=== PATIENT | female | born 1935 | race Caucasian/White ===

== ENCOUNTER → 2016-09-04 | Outpatient (CLI) | payer OTHER, BC ==
[~2016-09-04] MED LIST: CHOLCAP5 PO; MULT-845 PO; VITACAP26 PO
[2016-09-04 18:20] LABS: URINE APPEARANCE CLEAR (CLEAR); URINE BILIRUBIN NEG (NEG); URINE COLOR YELLOW; URINE NITRITE NEG (NEG); URINE PH 6.5 (4.5-7.5); URINE SPECIFIC GRAVITY 1.001 (1.000-1.030); UROBILINOGEN NEG (NEG)
[2016-09-04 18:21] LABS: MANUAL MICROSCOPIC REQUIRED? NO; REVIEW REQ? NO
== END | disposition home or self-care (01) ==
LOC: C.LABSPEC 17:50
PROVIDERS: ATTEND Obstetrics & Gynecology
DX: R30.0 Dysuria (principal)

== ENCOUNTER → 2018-03-29 | Outpatient (CLI) | payer OTHER, BC ==
--- NOTE | 2018-03-29 15:41 | MAMMOGRAPHY REPORT ---
BILATERAL DIGITAL SCREENING MAMMOGRAM TOMOSYNTHESIS WITH CAD: 03/29/2018 CLINICAL HISTORY: Routine screening. Patient has no complaints. TECHNIQUE: The study was acquired using full field digital technology and interpreted from soft copy. Breast tomosynthesis in addition to standard 2D mammography was performed. Current study was also ev aluated with a Computer Aided Detection (CAD) system. COMPARISON: Comparison is made to exams dated: 08/04/2016 mammogram, 08/03/2015 mammogram, 03/18/2014 m ammogram, 03/17/2013 mammogram, 03/12/2012 mammogram, and 03/08/2012 mammogram - [facility] nter. BREAST COMPOSITION: The tissue of both breasts is heterogeneously dense, which may obscure small mass es. FINDINGS: No suspicious masses, calcifications, or areas of architectural distortion are noted in either breast . There has been no significant interval change compared to prior exams. Grouped calcifications in t he right 9:00 breast are stable compared to multiple prior exams. IMPRESSION: ACR BI-RADS CATEGORY 2: BENIGN There is no mammographic evidence of malignancy. A 1 year screening mammogram is recommended.( [id number]) The patient will receive written notification of the results. Some breast cancers are not detected with mammography. A negative mammographic report should not lissy y biopsy if a clinically suggestive mass is present. Kavitha Lay M.D. ah/:03/29/2018 15:30:41 Installer Technician: RT [place](R)(M), [facility] letter sent: Normal 1/2 BI-RADS Code: ACR BI-RADS Category 2: Benign
== END | disposition home or self-care (01) ==
LOC: C.MAMM 14:54
PROVIDERS: ATTEND Obstetrics & Gynecology
DX: Z12.31 Encounter for screening mammogram for malignant neoplasm of breast (principal)

== ENCOUNTER 2021-03-14 14:39 | Inpatient (IN) ==
[2021-03-14] MEDS ORDERED: OPTIRAY 320 125ml IV ONE (14:44)
--- NOTE | 2021-03-14 14:47 | Emergency Department Note ---
Impression & Plan Acute left-sided weakness, Acute hyponatremia, Laceration of scalp ED Provider Note NAME: PRINCESS MONTERO AGE: 85 SEX: F : 1935 ARRIVES VIA: Ambulance INFORMANT: patient, ED PROVIDER(S): Kevin Oseguera MD Chief Complaint: Weakness, fall HPI: Patient does present from home due to concern for weakness and associated fall. The patient did have a fall at 1230 but was apparently ambulatory with no deficits. The patient had a subsequent fall around 1355 at which point the patient by EMS was noted to have some left upper extremity left lower extremity weakness. No known history of any anticoagulant use. No reported LOC. BSG was normal. The patient was satting in the low 90s and was placed on supplemental oxygen. Heart rate was in the 110s. Patient states that she had a ground-level fall. Patient denies any fevers or chills. The patient denies any medical problems and does not take any blood thinning medications. No reported fill history per pharmacy. ROS: See HPI for pertinent positives and negatives. A total of 10 systems were reviewed and otherwise negative. Past medical history: See below Surgical history: See below Social history: See below Physical Exam: GENERAL: Well appearing, well nourished, NAD, non-toxic. EYE EXAM: Normal conjunctiva. PERRL, no anisocoria and EOM's grossly intact w/o pain. Head: 2 cm vertical parietal scalp laceration. Scant bleeding. NECK: Supple, no nuchal rigidity, no adenopathy, non-tender. No signs of meningismus. LUNGS: Clear to auscultation. Normal chest wall mechanics. HEART: NSR, no MRG. ABDOMEN: Abdomen soft, non-tender, normo-active bowel sounds, no masses, no rebound or guarding. BACK: No CVA TTP. SKIN: No rashes and no bruising. UPPER EXTREMITIES: Upper extremities are grossly normal. LOWER EXTREMITIES: Grossly normal, no edema. NEURO EXAM: A&O x3, cranial nerves II-XII grossly intact, normal speech, 4/5 strength left upper extremity 3 out of 5 in the left lower extremity. Denies sensory deficits Differential diagnoses: Infection, dehydration, metabolic abnormality, hypo/hyperglycemia, electrolyte disturbance, anemia, hypoxia, cardiac sources, intracerebral event, toxicologic, neurologic, as well as other pathologies. Course: Patient was seen and evaluated the bedside. Full history physical exam was performed. EKG interpreted by me Sinus tachycardia, rate of 110, normal intervals, normal axis, no obvious ST changes. Imaging Studies: See below Cardiac monitoring: An order was placed for continuous cardiac monitoring. The monitor shows a rate of 95 with sinus rhythm. Procedures: Laceration repair performed by Dr. Oseguera Location: Left parietal area Total length: 2 cm Complexity: Simple Verbal consent was obtained after the risks and benefits were explained, includi ng but not limited to bleeding, scarring, infection, pain, and bone/joint/nerve damage. At this time, the risks of the procedure are less than the risks of NOT performing the procedure. A time out was taken and the correct patient and site identified. The skin was prepped with betadine. Cleaning of the area was performed using gentle soap and water. The skin was re-prepped with betadine and a sterile field set. The wound was explored for foreign bodies and none found. Examination revealed no injury to deep structures such as tendons, bone, or significant blood vessels. Debridement was not performed. The wound edges were approximated using 2 simple puneet. Hemostasis and excellent approximation was achieved. Antibacterial ointment and a sterile dressing applied. Detailed wound care instructions and signs and symptoms of infection reviewed with the patient. No complications and the patient tolerated the procedure well. MDM: Patient did present with concern for left-sided weakness. A code stroke had been initiated in the field and after evaluating the patient I did initiate to stroke consult with [facility] Dr. Alcala. Dr. Alcala evaluated the patient and was recommending TPA to be administered. The patient does not meet for obvious contraindications. The patient did have a ground-level fall but does not use blood thinning medications and is hemiplegic. CT of the head showed arachnoid cysts with no obvious occlusion based on CTAs only some mild to moderate narrowing. The patient did have her laceration repaired without any issue. TPA was given. I did speak the on-call hospitalist and the patient was admitted to the medicine service. Was related that the patient reported that she drinks about 5 beers daily. The patient states that she did not have any beer today. Patient is awake alert and does follow commands. Verbal consent was obtained by Dr. Alcala after discussing the risks and benefits with the patient with regards to TPA administration. Patient does have hyponatremia likely consistent with the patient's chronic alcohol use. The patient was also ordered IV thiamine as well as at risk withdrawal protocol given the patient's chronic alcohol use. Patient's chest x-ray did show some pleural effusions. Did speak with the on-call hospitalist Dr. Bhatia and the patient was admitted to the medicine service. Was notified by nursing that the patient has not had improvement of her weakness. The patient's left upper extremity and left lower extremity weakness does appear to be worse compared to her initial presentation. I did speak with the patient's niece who is the power of deputy prosecuting attorney who was present at the bedside at the time of this evaluation. The patient was subsequently mated to the intensive care unit. Critical Care: I have personally spent 95 minutes of critical care time in direct management of this patient. This includes bedside care, interpretation of diagnostic studies, and testing, discussion with consultants, patient, and family members, and other require inpatient management activities. This 95 minutes is in excess of all separately billable procedures. Past Med/Surg History Medical History Anemia Arthritis of knee, left GI bleed Knee pain, right Pseudogout Family History (Updated 03/14/21 @ 17:57 by HAWA Salomon) Other Family history non-contributory Social History Smoking Status: Unknown if ever smoked Hx Alcohol Use: Yes Alcohol type: beer Hx Substance Use: No Preferred Language: Bhutanese Beliefs That Will Affect Care: None Current Living Situation: Spouse Feels Safe at Home: Yes Allergies Allergies Allergy/AdvReac Type Severity Reaction Status Date / Time capsaicin Allergy Intermediate RASH Verified 03/14/21 15:02 diclofenac Allergy Intermediate RASH Verified 03/14/21 15:02 Home Meds Home Medications Medication Instructions Recorded Confirmed No Known Home Medications 03/14/21 03/14/21 Results & Data (ED) Vital Signs Vital Signs - 24 hr 03/14/21 14:53 03/14/21 15:34 03/14/21 15:40 Temperature Temperature Source Pulse Rate 110 H 111 H 112 H Pulse Rate [Apical] Pulse Rate from SpO2 Sensor 109 H 114 H Respiratory Rate 20 22 25 H Respiratory Effort / Characteristics Non-Labored Respiratory Depth Normal Respiratory Pattern Blood Pressure 124/77 161/107 H 154/88 H Blood Pressure [Right Arm] Blood Pressure Mean 92 125 110 Blood Pressure Mean [Right Arm] Pulse Oximetry 94 90 91 Oxygen Delivery Method Room Air Oxygen Flow Rate Sepsis Recent Fever Within 48 Hours No Sepsis New/Unexplained Change in Mental Status N/A Sepsis Action Taken by Nursing No Action Required 03/14/21 15:45 03/14/21 15:50 03/14/21 15:53 Temperature Temperature Source Pulse Rate 112 H 112 H Pulse Rate [Apical] Pulse Rate from SpO2 Sensor 113 H 111 H Respiratory Rate 26 H 28 H 16 Respiratory Effort / Characteristics Non-Labored Respiratory Depth Normal Respiratory Pattern Regular Blood Pressure 145/94 H 145/99 H Blood Pressure [Right Arm] Blood Pressure Mean 111 114 Blood Pressure Mean [Right Arm] Pulse Oximetry 93 92 93 Oxygen Delivery Method Room Air Oxygen Flow Rate Sepsis Recent Fever Within 48 Hours Sepsis New/Unexplained Change in Mental Status Sepsis Action Taken by Nursing 03/14/21 15:55 03/14/21 16:00 03/14/21 16:05 Temperature Temperature Source Pulse Rate 115 H 115 H 113 H Pulse Rate [Apical] Pulse Rate from SpO2 Sensor 114 H 114 H Respiratory Rate 22 15 18 Respiratory Effort / Characteristics Respiratory Depth Respiratory Pattern Blood Pressure 149/108 H 139/90 140/99 Blood Pressure [Right Arm] Blood Pressure Mean 121 106 112 Blood Pressure Mean [Right Arm] Pulse Oximetry 92 91 Oxygen Delivery Method Oxygen Flow Rate Sepsis Recent Fever Within 48 Hours Sepsis New/Unexplained Change in Mental Status Sepsis Action Taken by Nursing 03/14/21 16:08 03/14/21 16:10 03/14/21 16:15 Temperature Temperature Source Pulse Rate 119 H 107 H Pulse Rate [Apical] 125 H Pulse Rate from SpO2 Sensor 119 H 107 H Respiratory Rate 20 25 H 23 Respiratory Effort / Characteristics Non-Labored Spontaneous Respiratory Depth Normal Respiratory Pattern Regular Blood Pressure 113/77 132/76 Blood Pressure [Right Arm] 113/77 Blood Pressure Mean 89 94 Blood Pressure Mean [Right Arm] 89 Pulse Oximetry 94 91 90 Oxygen Delivery Method Nasal Cannula Oxygen Flow Rate 2 Sepsis Recent Fever Within 48 Hours Sepsis New/Unexplained Change in Mental Status Sepsis Action Taken by Nursing 03/14/21 16:20 03/14/21 16:24 03/14/21 16:25 Temperature 36.6 C Temperature Source Oral Pulse Rate 101 H 106 H Pulse Rate [Apical] 108 H Pulse Rate from SpO2 Sensor 100 H 109 H Respiratory Rate 17 20 23 Respiratory Effort / Characteristics Non-Labored Spontaneous Respiratory Depth Normal Respiratory Pattern Regular Blood Pressure 131/88 163/116 H Blood Pressure [Right Arm] 146/110 H Blood Pressure Mean 102 131 Blood Pressure Mean [Right Arm] 122 Pulse Oximetry 92 94 93 Oxygen Delivery Method Room Air Oxygen Flow Rate Sepsis Recent Fever Within 48 Hours Sepsis New/Unexplained Change in Mental Status Sepsis Action Taken by Nursing 03/14/21 16:30 03/14/21 16:35 03/14/21 16:38 Temperature Temperature Source Pulse Rate 114 H 109 H Pulse Rate [Apical] 111 H Pulse Rate from SpO2 Sensor Respiratory Rate 22 22 20 Respiratory Effort / Characteristics Non-Labored Spontaneous Respiratory Depth Normal Respiratory Pattern Blood Pressure 151/101 H 141/87 H Blood Pressure [Right Arm] 138/90 Blood Pressure Mean 117 105 Blood Pressure Mean [Right Arm] 106 Pulse Oximetry 97 Oxygen Delivery Method Nasal Cannula Oxygen Flow Rate 2 Sepsis Recent Fever Within 48 Hours Sepsis New/Unexplained Change in Mental Status Sepsis Action Taken by Nursing 03/14/21 16:40 03/14/21 16:45 03/14/21 16:50 Temperature Temperature Source Pulse Rate 115 H 114 H 117 H Pulse Rate [Apical] Pulse Rate from SpO2 Sensor 113 H 113 H 117 H Respiratory Rate 19 23 25 H Respiratory Effort / Characteristics Respiratory Depth Respiratory Pattern Blood Pressure 138/90 110/94 96/77 L Blood Pressure [Right Arm] Blood Pressure Mean 106 99 83 Blood Pressure Mean [Right Arm] Pulse Oximetry 97 98 97 Oxygen Delivery Method Oxygen Flow Rate Sepsis Recent Fever Within 48 Hours Sepsis New/Unexplained Change in Mental Status Sepsis Action Taken by Nursing 03/14/21 16:53 03/14/21 16:57 03/14/21 17:00 Temperature 36.5 C Temperature Source Oral Pulse Rate 117 H 117 H Pulse Rate [Apical] 117 H Pulse Rate from SpO2 Sensor 117 H 117 H Respiratory Rate 20 24 23 Respiratory Effort / Characteristics Non-Labored Spontaneous Respiratory Depth Normal Respiratory Pattern Regular Blood Pressure 97/82 L 110/87 Blood Pressure [Right Arm] 96/77 L Blood Pressure Mean 87 94 Blood Pressure Mean [Right Arm] 83 Pulse Oximetry 98 97 97 Oxygen Delivery Method Nasal Cannula Oxygen Flow Rate 2 Sepsis Recent Fever Within 48 Hours Sepsis New/Unexplained Change in Mental Status Sepsis Action Taken by Nursing 03/14/21 17:08 03/14/21 17:15 03/14/21 17:23 Temperature 36.7 C Temperature Source Oral Pulse Rate 118 H Pulse Rate [Apical] 117 H 112 H Pulse Rate from SpO2 Sensor Respiratory Rate 20 25 H 20 Respiratory Effort / Characteristics Non-Labored Spontaneous Non-Labored Respiratory Depth Normal Normal Respiratory Pattern Regular Regular Blood Pressure 130/92 Blood Pressure [Right Arm] 110/87 130/92 Blood Pressure Mean 104 Blood Pressure Mean [Right Arm] 94 104 Pulse Oximetry 98 98 Oxygen Delivery Method Nasal Cannula Nasal Cannula Oxygen Flow Rate 2 Sepsis Recent Fever Within 48 Hours Sepsis New/Unexplained Change in Mental Status Sepsis Action Taken by Skilled Nursing Medications Current Medication List: was personally reviewed by me Laboratory Data Attestation: I reviewed the patient's lab results. Result diagrams: 03/14/21 21:32 03/14/21 20:50 Lab Results 03/14/21 03/14/21 03/14/21 Range/Units 15:29 15:29 15:29 WBC 11.39 H (4.8-10.8) K/uL RBC 5.20 (4.2-5.4) M/uL Hgb 18.8 H (12.0-16.0) g/dL POC Hgb (12.0-16.0) g/dl Hct 51.0 H (37-47) % POC Hct (37-47) % MCV 98.1 (80-100) fL MCH 36.2 H (25-34) pg MCHC 36.9 H (32-36) g/dL RDW Std Deviation 43.8 (36.4-46.3) fL RDW Coeff of Clemente 12.2 (11.5-14.5) % Plt Count 222 (130-400) K/uL MPV 9.9 (7.4-10.4) fL Immature Gran % (Auto) 0.5 % Neut % (Auto) 86.9 % Lymph % (Auto) 4.9 % [place] % (Auto) 7.4 % Eos % (Auto) 0.1 % Baso % (Auto) 0.2 % Neut # (Auto) 9.90 H (1.4-6.5) K/uL Lymph # (Auto) 0.56 L (1.2-3.4) K/uL [place] # (Auto) 0.84 H (0.11-0.59) K/uL Eos # (Auto) 0.01 (0-0.5) K/uL Baso # (Auto) 0.02 (0-0.2) K/uL Immature Gran # (Auto) 0.06 H (0.00-0.02) K/uL PT Cancelled INR Cancelled APTT Cancelled PTT Ratio Cancelled POC Sodium (135-144) mmol/L Sodium (136-145) mmol/L POC Potassium (3.3-5.0) mmol/L Potassium (3.5-5.1) mmol/L POC Chloride (101-112) mmol/L Chloride (98-107) mmol/L Carbon Dioxide (21-32) mmol/L POC Total CO2 (24-31) mmol/L Anion Gap (3-11) POC Anion Gap (16-25) mmol/L POC BUN (7-18) mg/dl BUN (7-18) mg/dl Creatinine (0.6-1.2) mg/dl POC Creatinine (0.6-1.3) mg/dl Est Cr Clr Drug Dosing ml/min Est GFR ( Amer) ml/min Est GFR (Non-Af Amer) ml/min BUN/Creatinine Ratio (10-20) Glucose (70-99) mg/dl POC Glucose (other) (70-99) mg/dl Calcium (8.5-10.1) mg/dl POC Ioniz Calcium Ignacio (1.12-1.32) mmol/l Magnesium (1.8-2.4) mg/dl Total Bilirubin (0.2-1) mg/dl AST (15-37) U/L ALT (12-78) U/L Alkaline Phosphatase (45-117) U/L Troponin I (0-0.045) ng/ml Total Protein (6.4-8.2) gm/dl Albumin (3.4-5.0) gm/dl Globulin (2.5-4.0) gm/dl Albumin/Globulin Ratio (0.9-2) COVID-19 Eval Order SARS-CoV-2 (PCR) (Negative) Blood Type Cancelled Antibody Screen Cancelled Crossmatch 03/14/21 03/14/21 03/14/21 Range/Units 15:29 15:29 15:34 WBC (4.8-10.8) K/uL RBC (4.2-5.4) M/uL Hgb (12.0-16.0) g/dL POC Hgb 19.7 H (12.0-16.0) g/dl Hct (37-47) % POC Hct 58 H (37-47) % MCV (80-100) fL MCH (25-34) pg MCHC (32-36) g/dL RDW Std Deviation (36.4-46.3) fL RDW Coeff of Clemente (11.5-14.5) % Plt Count (130-400) K/uL MPV (7.4-10.4) fL Immature Gran % (Auto) % Neut % (Auto) % Lymph % (Auto) % [place] % (Auto) % Eos % (Auto) % Baso % (Auto) % Neut # (Auto) (1.4-6.5) K/uL Lymph # (Auto) (1.2-3.4) K/uL [place] # (Auto) (0.11-0.59) K/uL Eos # (Auto) (0-0.5) K/uL Baso # (Auto) (0-0.2) K/uL Immature Gran # (Auto) (0.00-0.02) K/uL PT INR APTT PTT Ratio POC Sodium 119 L* (135-144) mmol/L Sodium 118 L* (136-145) mmol/L POC Potassium 5.4 H (3.3-5.0) mmol/L Potassium 4.5 (3.5-5.1) mmol/L POC Chloride 84 L (101-112) mmol/L Chloride 84 L (98-107) mmol/L Carbon Dioxide 25 (21-32) mmol/L POC Total CO2 28 (24-31) mmol/L Anion Gap 10.0 (3-11) POC Anion Gap 13.0 L (16-25) mmol/L POC BUN 8 (7-18) mg/dl BUN 8 (7-18) mg/dl Creatinine 0.65 (0.6-1.2) mg/dl POC Creatinine 0.5 L (0.6-1.3) mg/dl Est Cr Clr Drug Dosing 61.4 ml/min Est GFR ( Amer) 95.2 ml/min Est GFR (Non-Af Amer) 82.1 ml/min BUN/Creatinine Ratio 12.0 (10-20) Glucose 118 H (70-99) mg/dl POC Glucose (other) 119 H (70-99) mg/dl Calcium 8.9 (8.5-10.1) mg/dl POC Ioniz Calcium Ignacio 0.98 L (1.12-1.32) mmol/l Magnesium 2.2 (1.8-2.4) mg/dl Total Bilirubin 2.3 H (0.2-1) mg/dl AST 49 H (15-37) U/L ALT 33 (12-78) U/L Alkaline Phosphatase 245 H (45-117) U/L Troponin I 0.039 (0-0.045) ng/ml Total Protein 7.9 (6.4-8.2) gm/dl Albumin 3.2 L (3.4-5.0) gm/dl Globulin 4.7 H (2.5-4.0) gm/dl Albumin/Globulin Ratio 0.7 L (0.9-2) COVID-19 Eval Order SARS-CoV-2 (PCR) (Negative) Blood Type A Positive Antibody Screen NEGATIVE Crossmatch See Detail 03/14/21 03/14/21 03/14/21 Range/Units 16:20 16:20 16:20 WBC (4.8-10.8) K/uL RBC (4.2-5.4) M/uL Hgb (12.0-16.0) g/dL POC Hgb (12.0-16.0) g/dl Hct (37-47) % POC Hct (37-47) % MCV (80-100) fL MCH (25-34) pg MCHC (32-36) g/dL RDW Std Deviation (36.4-46.3) fL RDW Coeff of Clemente (11.5-14.5) % Plt Count (130-400) K/uL MPV (7.4-10.4) fL Immature Gran % (Auto) % Neut % (Auto) % Lymph % (Auto) % [place] % (Auto) % Eos % (Auto) % Baso % (Auto) % Neut # (Auto) (1.4-6.5) K/uL Lymph # (Auto) (1.2-3.4) K/uL [place] # (Auto) (0.11-0.59) K/uL Eos # (Auto) (0-0.5) K/uL Baso # (Auto) (0-0.2) K/uL Immature Gran # (Auto) (0.00-0.02) K/uL PT INR APTT PTT Ratio POC Sodium (135-144) mmol/L Sodium (136-145) mmol/L POC Potassium (3.3-5.0) mmol/L Potassium (3.5-5.1) mmol/L POC Chloride (101-112) mmol/L Chloride (98-107) mmol/L Carbon Dioxide (21-32) mmol/L POC Total CO2 (24-31) mmol/L Anion Gap (3-11) POC Anion Gap (16-25) mmol/L POC BUN (7-18) mg/dl BUN (7-18) mg/dl Creatinine (0.6-1.2) mg/dl POC Creatinine (0.6-1.3) mg/dl Est Cr Clr Drug Dosing ml/min Est GFR ( Amer) ml/min Est GFR (Non-Af Amer) ml/min BUN/Creatinine Ratio (10-20) Glucose (70-99) mg/dl POC Glucose (other) (70-99) mg/dl Calcium (8.5-10.1) mg/dl POC Ioniz Calcium Ignacio (1.12-1.32) mmol/l Magnesium (1.8-2.4) mg/dl Total Bilirubin (0.2-1) mg/dl AST (15-37) U/L ALT (12-78) U/L Alkaline Phosphatase (45-117) U/L Troponin I (0-0.045) ng/ml Total Protein (6.4-8.2) gm/dl Albumin (3.4-5.0) gm/dl Globulin (2.5-4.0) gm/dl Albumin/Globulin Ratio (0.9-2) COVID-19 Eval Order Cancelled Covid19 at [facility] SARS-CoV-2 (PCR) NEGATIVE (Negative) Blood Type Antibody Screen Crossmatch Administered Medications Folic Acid (Folic Acid 1 Mg Tab) 1 mg PO QAM [facility] Stop: 04/13/21 20:39 Last Admin: 03/14/21 21:23 Dose: Not Given Documented by: [id number] Lorazepam (Ativan) 1 mg in 2 mls @ 2 mls/min IV ONE PRN; Protocol PRN Reason: EtoH Withdrawal AWSS 6-10 Stop: 04/13/21 16:09 Last Admin: 03/14/21 17:08 Dose: 2 mls/min Documented by: [id number] Lactated Ringer's (Lr) 1,000 mls @ 100 mls/hr IV .Q10H ELAINA Stop: 04/13/21 20:39 Last Admin: 03/14/21 21:21 Dose: 100 mls/hr Documented by: [id number] Discontinued Medications Alteplase, Recombinant (Tpa For Stroke) 1 ea IV NOW STA; Protocol Stop: 03/14/21 15:19 Last Admin: 03/14/21 16:47 Dose: Not Given Documented by: [id number] Alteplase, Recombinant 5.4 mg/ (Syringe) 5.4 mls @ 5.4 mls/min IV ONCE ONE Stop: 03/14/21 15:29 Last Admin: 03/14/21 15:38 Dose: 5.4 mls/min Documented by: [id number] Cosigned by: [id number] Alteplase, Recombinant 49 mg/ (EMPTY BAG) 49 mls @ 49 mls/hr IV ONCE ONE Stop: 03/14/21 15:30 Last Infusion: 03/14/21 16:42 Dose: 0 mls/hr Documented by: [id number] Cosigned by: [id number] Admin: 03/14/21 15:43 Dose: 49 mls/hr Documented by: [id number] Cosigned by: [id number] Sodium Chloride (Nss) 500 mls @ 999 mls/hr IV .Q31M ONE Stop: 03/14/21 16:08 Last Infusion: 03/14/21 16:48 Dose: 0 mls/hr Documented by: [id number] Admin: 03/14/21 16:00 Dose: 999 mls/hr Documented by: [id number] Thiamine HCl 100 mg/ Syringe 10 mls @ 2 mls/min IV NOW STA Stop: 03/14/21 16:12 Last Admin: 03/14/21 16:50 Dose: 2 mls/min Documented by: [id number] Sodium Chloride (Nss 1000ml) 250 mls @ 999 mls/hr IV .Q16M ONE Stop: 03/14/21 17:21 Last Infusion: 03/14/21 19:41 Dose: 0 mls/hr Documented by: [id number] Admin: 03/14/21 17:40 Dose: 999 mls/hr Documented by: [id number] Lactated Ringer's (Lr) 250 mls @ 999 mls/hr IV .Q16M ONE Stop: 03/14/21 20:58 Last Infusion: 03/14/21 22:19 Dose: 0 mls/hr Documented by: [id number] Admin: 03/14/21 21:21 Dose: 999 mls/hr Documented by: [id number] Ioversol (Optiray 320 125ml) 118 ml IV ONCE ONE Stop: 03/14/21 14:45 Last Admin: 03/14/21 14:45 Dose: 118 ml Documented by: [id number] Imaging Data Radiologist's Impression: Chest X-Ray 03/14/21 14:34 XR chest 1V portable CLINICAL HISTORY: Stroke Like Symptoms COMPARISON STUDY: 09/01/2020 FINDINGS: The heart is mildly enlarged. There is radiographic evidence of congestive failure/fluid overload with bilateral pleural effusions left greater than right. There are bibasilar opacities, likely representing compressive atelectasis although an infectious/inflammatory process could appear similar. Clinical and radiographic follow-up is recommended. The patient is rotated. There is a nonspecific 1 cm right upper lung zone opacity. There is a 5 mm left upper lung zone nodular opacity.[ IMPRESSION: 1. Radiographic evidence of congestive failure/fluid overload with bilateral pleural effusions left greater than right 2. Bibasilar opacities likely atelectatic although an infectious/inflammatory process could appear similar 3. Nonspecific small upper lung zone nodular opacities. 4. Radiographic follow-up is recommended. ACT 112: Negative or not required by law. Electronically signed by: Callum Nelson M.D. 03/14/2021 3:[address] 03/14/21 14:34 CT head/brain wo con CLINICAL HISTORY: Stroke Like Symptoms COMPARISON STUDY: 09/01/2020 TECHNIQUE: Axial CT of the brain is performed from the vertex to the skull base. IV contrast was not administered for this examination. A dose lowering technique was utilized adhering to the principles of ALARA. CT DOSE: 975.90 mGy.cm FINDINGS: There is a stable left frontal arachnoid cyst measuring 4.5 cm in diameter. There is no CT evidence of acute cortical infarction. There is no evidence of acute hemorrhage. There is no evidence of midline shift. No calvarial fractures are visualized. There are extensive white matter hypodensities likely on a small vessel basis. There is no evidence of pathologic ventricular dilatation. There is no evidence of acute sinusitis The cement worker localizer image demonstrates a 1 cm right upper lung zone pulmonary nodule. IMPRESSION: 1. No acute intracranial findings 2. Stable left frontal arachnoid cyst 3. Persistent severe white matter disease. ACT 112: Negative or not required by law. Electronically signed by: Callum Nelson M.D. 03/14/2021 2:55 PM Head CTA 03/14/21 14:34 HEAD & NECK CTA HISTORY: Stroke Like Symptoms TECHNIQUE: Multiaxial CT images of the head were performed following the intr avenous administration of contrast to evaluate the major cerebral vessels. Multiaxial CT images of the neck were also performed following the intravenous administration of contrast to evaluate the major cervical vessels. Maximum intensity projection images were also obtained. A dose lowering technique was utilized adhering to the principles of ALARA. COMPARISON: Head CT 03/14/2021. FINDINGS: There is no mass, hematoma, midline shift, or acute infarct. Visualized intracranial internal carotid arteries, distal vertebral arteries, and basilar artery are widely patent. There is no significant stenosis, occlusion, or aneurysm seen within the bilateral ACAs or MCAs. Mild to moderate multifocal narrowing within the bilateral mid podiatric technician without occlusion. Stable 4.5 cm left frontal lobe arachnoid cyst. Mild soft tissue swelling and subcutaneous gas within the left lateral scalp. This represents a scalp laceration. The aortic arch and proximal great vessels are widely patent. There is no significant stenosis, occlusion, or dissection identified within the bilateral common carotid, internal carotid, or vertebral arteries. Mild interlobular septal thickening and patchy irregular densities within the lung apices. There are moderate bilateral pleural effusions. This could be due to an atypical pneumonia or pulmonary edema. Mild to moderate calcified plaque within the bilateral carotid bifurcations. IMPRESSION: 1. Mild to moderate multifocal narrowing within the bilateral mid podiatric technician. Otherwise, no significant stenosis, occlusion, or aneurysm within the remaining [place]. 2. No significant stenosis, occlusion, or dissection identified within the carotid or vertebral arteries. 3. Left scalp swelling/laceration. 4. Mild interlobular septal thickening and patchy irregular densities within the lung apices. There are are also moderate bilateral pleural effusions. This could be due to pulmonary edema or an atypical pneumonia. ACT 112: Negative or not required by law. Electronically signed by: Dustin Sotelo M.D. 03/14/2021 3:10 PM Neck CTA 03/14/21 14:34 HEAD & NECK CTA HISTORY: Stroke Like Symptoms TECHNIQUE: Multiaxial CT images of the head were performed following the intrav enous administration of contrast to evaluate the major cerebral vessels. Multiaxial CT images of the neck were also performed following the intravenous administration of contrast to evaluate the major cervical vessels. Maximum intensity projection images were also obtained. A dose lowering technique was utilized adhering to the principles of ALARA. COMPARISON: Head CT 03/14/2021. FINDINGS: There is no mass, hematoma, midline shift, or acute infarct. Visualized intracranial internal carotid arteries, distal vertebral arteries, and basilar artery are widely patent. There is no significant stenosis, occlusion, or an eurysm seen within the bilateral ACAs or MCAs. Mild to moderate multifocal narrowing within the bilateral mid podiatric technician without occlusion. Stable 4.5 cm left frontal lobe arachnoid cyst. Mild soft tissue swelling and subcutaneous gas within the left lateral scalp. This represents a scalp laceration. The aortic arch and proximal great vessels are widely patent. There is no si gnificant stenosis, occlusion, or dissection identified within the bilateral common carotid, internal carotid, or vertebral arteries. Mild interlobular septal thickening and patchy irregular densities within the lung apices. There are moderate bilateral pleural effusions. This could be due to an atypical pneumonia or pulmonary edema. Mild to moderate calcified plaque within the bilateral carotid bifurcations. IMPRESSION: 1. Mild to moderate multifocal narrowing within the bilateral mid podiatric technician. Otherwise, no significant stenosis, occlusion, or aneurysm within the remaining [place]. 2. No significant stenosis, occlusion, or dissection identified within the carotid or vertebral arteries. 3. Left scalp swelling/laceration. 4. Mild interlobular septal thickening and patchy irregular densities within the lung apices. There are are also moderate bilateral pleural effusions. This could be due to pulmonary edema or an atypical pneumonia. ACT 112: Negative or not required by law. Electronically signed by: Dustin Sotelo M.D. 03/14/2021 3:10 PM Discharge Plan Visit Data Chief Complaint: Stroke Alert ED Provider: Kevin Oseguera Discharge Problem: Acute left-sided weakness, Acute hyponatremia, Laceration of scalp Patient Disposition: Admitted As Inpatient Discharge Instructions Interventions: ED Discharge Assessment Last Done: 03/14/21 19:15 Discharge Problem: Laceration of scalp Qualifiers: Encounter type: initial encounter Qualified Code(s): S01.01XA - Laceration without foreign body of scalp, initial encounter
--- NOTE | 2021-03-14 14:56 | CT Scan Report ---
CT head/brain wo con CLINICAL HISTORY: Stroke Like Symptoms COMPARISON STUDY: 09/01/2020 TECHNIQUE: Axial CT of the brain is performed from the vertex to the skull base. IV contrast was not administered for this examination. A dose lowering technique was utilized adhering to the principles of ALARA. CT DOSE: 975.90 mGy.cm FINDINGS: There is a stable left frontal arachnoid cyst measuring 4.5 cm in diameter. There is no CT evidence o f acute cortical infarction. There is no evidence of acute hemorrhage. There is no evidence of midlin e shift. No calvarial fractures are visualized. There are extensive white matter hypodensities likely on a small vessel basis. There is no evidence of pathologic ventricular dilatation. There is no evidence of acute sinusitis The machinery engineer localizer image demonstrates a 1 cm right upper lung zone pulmonary nodule. IMPRESSION: 1. No acute intracranial findings 2. Stable left frontal arachnoid cyst 3. Persistent severe white matter disease. ACT 112: Negative or not required by law. Electronically signed by: Callum Nelson M.D. 03/14/2021 2:55 PM
--- NOTE | 2021-03-14 15:12 | CT Scan Report ---
HEAD & NECK CTA HISTORY: Stroke Like Symptoms TECHNIQUE: Multiaxial CT images of the head were performed following the intravenous administration o f contrast to evaluate the major cerebral vessels. Multiaxial CT images of the neck were also perform ed following the intravenous administration of contrast to evaluate the major cervical vessels. Maxim um intensity projection images were also obtained. A dose lowering technique was utilized adhering to the principles of ALARA. COMPARISON: Head CT 03/14/2021. FINDINGS: There is no mass, hematoma, midline shift, or acute infarct. Visualized intracranial internal carotid arteries, distal vertebral arteries, and basilar artery are widely patent. There is no significant s tenosis, occlusion, or aneurysm seen within the bilateral ACAs or MCAs. Mild to moderate multifocal n arrowing within the bilateral mid chain mortiser operator without occlusion. Stable 4.5 cm left frontal lobe arachnoid c yst. Mild soft tissue swelling and subcutaneous gas within the left lateral scalp. This represents a scalp laceration. The aortic arch and proximal great vessels are widely patent. There is no significant stenosis, occ lusion, or dissection identified within the bilateral common carotid, internal carotid, or vertebral arteries. Mild interlobular septal thickening and patchy irregular densities within the lung apices. There are moderate bilateral pleural effusions. This could be due to an atypical pneumonia or pulmona ry edema. Mild to moderate calcified plaque within the bilateral carotid bifurcations. IMPRESSION: 1. Mild to moderate multifocal narrowing within the bilateral mid chain mortiser operator. Otherwise, no significant kelvin nosis, occlusion, or aneurysm within the remaining [place]. 2. No significant stenosis, occlusion, or dissection identified within the carotid or vertebral arter ies. 3. Left scalp swelling/laceration. 4. Mild interlobular septal thickening and patchy irregular densities within the lung apices. There a re are also moderate bilateral pleural effusions. This could be due to pulmonary edema or an atypical pneumonia. ACT 112: Negative or not required by law. Electronically signed by: Dustin Sotelo M.D. 03/14/2021 3:10 PM
--- NOTE | 2021-03-14 15:12 | CT Scan Report ---
HEAD & NECK CTA HISTORY: Stroke Like Symptoms TECHNIQUE: Multiaxial CT images of the head were performed following the intravenous administration o f contrast to evaluate the major cerebral vessels. Multiaxial CT images of the neck were also perform ed following the intravenous administration of contrast to evaluate the major cervical vessels. Maxim um intensity projection images were also obtained. A dose lowering technique was utilized adhering to the principles of ALARA. COMPARISON: Head CT 03/14/2021. FINDINGS: There is no mass, hematoma, midline shift, or acute infarct. Visualized intracranial internal carotid arteries, distal vertebral arteries, and basilar artery are widely patent. There is no significant s tenosis, occlusion, or aneurysm seen within the bilateral ACAs or MCAs. Mild to moderate multifocal n arrowing within the bilateral mid hearing aid assembly supervisor without occlusion. Stable 4.5 cm left frontal lobe arachnoid c yst. Mild soft tissue swelling and subcutaneous gas within the left lateral scalp. This represents a scalp laceration. The aortic arch and proximal great vessels are widely patent. There is no significant stenosis, occ lusion, or dissection identified within the bilateral common carotid, internal carotid, or vertebral arteries. Mild interlobular septal thickening and patchy irregular densities within the lung apices. There are moderate bilateral pleural effusions. This could be due to an atypical pneumonia or pulmona ry edema. Mild to moderate calcified plaque within the bilateral carotid bifurcations. IMPRESSION: 1. Mild to moderate multifocal narrowing within the bilateral mid hearing aid assembly supervisor. Otherwise, no significant kelvin nosis, occlusion, or aneurysm within the remaining [place]. 2. No significant stenosis, occlusion, or dissection identified within the carotid or vertebral arter ies. 3. Left scalp swelling/laceration. 4. Mild interlobular septal thickening and patchy irregular densities within the lung apices. There a re are also moderate bilateral pleural effusions. This could be due to pulmonary edema or an atypical pneumonia. ACT 112: Negative or not required by law. Electronically signed by: Dustin Sotelo M.D. 03/14/2021 3:10 PM
[2021-03-14] MEDS ORDERED: TPA for Stroke IV STA (15:18)
[2021-03-14] MEDS ORDERED: ALTEPLASE BOLUS IV ONE (15:28)
[2021-03-14] MEDS ORDERED: ALTEPLASE IV ONE (15:29)
[2021-03-14] MEDS ORDERED: PRIMARY PLUMSET, PE LINED TUBING, 113 IN, NON-DEHP (2260-0500) IV ONE (15:29)
[2021-03-14] MEDS ORDERED: RECOMBINANT IV ONE (15:29)
[2021-03-14] MEDS ORDERED: No Aspirin within 24 hrs of TPA for Stroke PO SCH (15:30)
[2021-03-14 15:36] LABS: Basophils # (auto) 0.02 K/uL (0-0.2); Basophils % (auto) 0.2 %; Eosinophils # (auto) 0.01 K/uL (0-0.5); Eosinophils % (auto) 0.1 %; Hemoglobin 18.8 g/dL (12.0-16.0); Immature Granulocytes # (auto) 0.06 K/uL (0.00-0.02); Immature Granulocytes % (auto) 0.5 %; Lymphocytes # (auto) 0.56 K/uL (1.2-3.4); Lymphocytes % (auto) 4.9 %; Mean Corpuscular Hemoglobin 36.2 pg (25-34); Mean Corpuscular Hgb Conc 36.9 g/dL (32-36); Mean Corpuscular Volume 98.1 fL (80-100); Mean Platelet Volume 9.9 fL (7.4-10.4); Monocytes # (auto) 0.84 K/uL (0.11-0.59); Monocytes % (auto) 7.4 %; Neutrophils % (auto) 86.9 %; Platelet Count 222 K/uL (130-400); RDW Coefficient of Variation 12.2 % (11.5-14.5); RDW Standard Deviation 43.8 fL (36.4-46.3); White Blood Count 11.39 K/uL (4.8-10.8)
[2021-03-14 15:49] LABS: iSTAT Creatinine 0.5 mg/dl (0.6-1.3); iSTAT Hemoglobin 19.7 g/dl (12.0-16.0); iSTAT Ionized Calcium 0.98 mmol/l (1.12-1.32); iSTAT Potassium 5.4 mmol/L (3.3-5.0)
--- NOTE | 2021-03-14 15:53 | XRay Report ---
XR chest 1V portable CLINICAL HISTORY: Stroke Like Symptoms COMPARISON STUDY: 09/01/2020 FINDINGS: The heart is mildly enlarged. There is radiographic evidence of congestive failure/fluid ov erload with bilateral pleural effusions left greater than right. There are bibasilar opacities, likel y representing compressive atelectasis although an infectious/inflammatory process could appear simil ar. Clinical and radiographic follow-up is recommended. The patient is rotated. There is a nonspecifi c 1 cm right upper lung zone opacity. There is a 5 mm left upper lung zone nodular opacity.[ IMPRESSION: 1. Radiographic evidence of congestive failure/fluid overload with bilateral pleural effusions left g reater than right 2. Bibasilar opacities likely atelectatic although an infectious/inflammatory process could appear si milar 3. Nonspecific small upper lung zone nodular opacities. 4. Radiographic follow-up is recommended. ACT 112: Negative or not required by law. Electronically signed by: Callum Nelson M.D. 03/14/2021 3:52 PM
[2021-03-14] MEDS: SODIUM CHLORIDE 0.9% 500 ML IV ONE ×2 (16:00→16:47)
[2021-03-14] MEDS ORDERED: THIAMINE HCL 100 MG in SYRINGE 9 ML IV STA (16:08)
[2021-03-14] MEDS ORDERED: LORazepam 1 MG/2 ML VIAL IV PRN (16:10)
[2021-03-14 16:14] LABS: Potassium 4.5 mmol/L (3.5-5.1)
[2021-03-14 16:16] LABS: Magnesium 2.2 mg/dl (1.8-2.4)
[2021-03-14 16:19] LABS: Albumin Globulin Ratio 0.7 (0.9-2); Albumin Level 3.2 gm/dl (3.4-5.0); Calcium 8.9 mg/dl (8.5-10.1); Creatinine Clr Calc Pharmacy 61.4 ml/min; Est GFR (African American) 95.2 ml/min; Est GFR (Non-African American) 82.1 ml/min; Globulin 4.7 gm/dl (2.5-4.0); Total Protein 7.9 gm/dl (6.4-8.2); Troponin I 0.039 ng/ml (0-0.045)
[2021-03-14] MEDS ORDERED: SODIUM CHLORIDE 0.9% 1000ML 250 ML IV ONE (17:06)
[2021-03-14 17:07] LABS: Bilirubin,Total 2.3 mg/dl (0.2-1)
[2021-03-14] MEDS ORDERED: LABETALOL HCL IV 5 MG/ML 20ML IV PRN (17:29)
[2021-03-14] MEDS ORDERED: PHARMACIST DISCHARGE MED REC CONSULT PRN (17:29)
[2021-03-14] MEDS ORDERED: ICU PROTOCOL FOR HYPERGLYCEMIA PRN (17:29)
--- NOTE | 2021-03-14 17:46 | History & Physical Report ---
Date of Service March 14, 2021 Assessment & Plan (1) CVA (cerebral vascular accident): Acute left sided weakness upper and lower extremity- unspecified vessel - tPA ~1538 - Type and cross completed - Monitor q1 hour neurological exams - Lipid panel in the morning - HGBa1c in the morning - Repeat imaging 24 hours post tPA- CT scan if MRI can't be done early in morning - MRI for follow up - non-con CT scan for any neurological changes - PRN hypertensives- likely not needed in the setting of hyponatremia - Neurology consulted - ECHO (2) Acute left-sided weakness: As above - will need follow on medical management - PT/OT consult - Case management consult (3) Acute hyponatremia: Patient received 0.9% saline in the EMD- will hold on sending urine labs - hypovolemia confounded with beer drinker potomania likely - Free water restrict 1000 ml for 24 hours - LR resuscitation - asymptomatic at this time - NA levels q4 hours- Notify if NA increases more than 8mmol (4) Laceration of scalp: Repaired in EMD- follow for bleeding (5) Alcohol abuse: 5-7 beers per day - AAWS with Ativan coverage overtop - Follow closely in the setting of tPA for neurological changes - Mild elevation of LFT - INR in the morning - Thiamine 500 mg TID - Folate 1mg PO daily - abdomen protuberant but without evidence of ascites (6) Hypotension: hypovolemia with hemoconcentration on labs as well as hyponatremia and hypochloridemia - replacment with crystalloid (7) Hypocalcemia: Likely related to poor nutrition and ETOH abuse - ICU electrolyte replacement protocol (8) Hyperkalemia: 5.4 - no acute ECG changes noted - fall, hypovolemia - LR will assist with lowering - BMP q4 hours History of Present Illness Primary Care Provider: Maria Teresa Noe MD 85 YOF that does not routinely follow up with medical care and reportedly is not on any home medications other than Tylenol and Motrin for back pain. Patient comes in to the hospital today after falling in front of her steps this morning. The patient does exhibit some amnesia from the events from this morning. Her niece accompanies her to the bedside and she reports that she was called by the apartment leasing specialist this morning because her aunt fell x2 from standing position. She reportedly fell around 1230 without deficits and had another fall around 1335 for which EMS was called. She was also noted to not be able to move her left side. She was brought to the EMD in which she was stroke alerted with telemedicine at [facility]. Head CTA was done at 1450. She was deemed a candidate for tPA with her deficits and time last known well she was administered tPA in the EMD and the hospitalist team was notified for admission. Patient received tPA at 1538. Patient also had repair done to a left scalp laceration. Upon my evaluation patient is awake and alert in bed with remaining left sided residual weakness with NIHSS-6. Pain to left hip and pelvis. Pelvis and hip films will be ordered. Patient will be admitted to the ICU post tPA. Type and cross has been performed. Patient states she drinks 5-7 beers per night, she is also noted to be hyponatremic at 119, no baseline INR on this admission, LFTs mild elevation in ALT and Tbili. Patient has not been vaccinated for COVID 19 and her test today is NEGATIVE. Allergies Allergy/AdvReac Type Severity Reaction Status Date / Time capsaicin Allergy Intermediate RASH Verified 03/14/21 15:02 diclofenac Allergy Intermediate RASH Verified 03/14/21 15:02 Home Medications Medication Instructions Recorded Confirmed Type No Known Home Medications 03/14/21 03/14/21 History Past Med/Surg History Medical History Anemia Arthritis of knee, left GI bleed Knee pain, right Pseudogout Family History (Updated 03/14/21 @ 17:57 by HAWA Salomon) Other Family history non-contributory Social History Smoking Status: Unknown if ever smoked Hx Alcohol Use: Yes Alcohol type: beer Hx Substance Use: No Preferred Language: Turkish Beliefs That Will Affect Care: None Current Living Situation: Spouse Feels Safe at Home: Yes Review of Systems Review of Systems: REVIEW OF SYSTEMS: Constitutional: No fever, sweats or chills Eyes: No diplopia, no worsening or blurred vision ENT: normal hearing, no trouble swallowing Respiratory: No cough, sputum, dyspnea at rest or on exertion Cardiovascular: No chest pain, tightness or palpitations Abdomen: (+) loss of appetite, No pain, nausea, vomiting, diarrhea or constipation Musculoskeletal: (+) joint pain, calf pain, swelling Neurologic: (+) No weakness, numbness/tingling, or balance problems Psychiatric: No anxiety or depression Skin: No rash or itch Physical Exam Physical Exam: PHYSICAL EXAM: General: awake, alert, no apparent distress, remains amnestic of events leading up to hospitalization. Head: Normocephalic, atraumatic ENT: PERRL, EOMI, no pharyngeal exudate, mucous membranes moist Neuro: AAO x 3, speech clear and appropriate, strength intact bilaterally 5/5 right upper and lower, left upper 0/5, left lower 1/5, sensation intact and equal all extremities and dermatomes, no dysarthria or aphasia, no overshoot with right arm. no visual field deficits appreciated Chest: equal rise and fall of the chest, no accessory muscle use, no heaves or thrills, Clear to auscultation, on room air, Cardiac: Regular rate and rhythm, telemetry reviewed, skin warm dry, cap refill <3 seconds, peripheral pulses +2 no JVD, no murmur, no edema GI: NABS x 4 quadrants, soft, nontender to palpation, no rebound, guarding or tenderness : Spontaneously voiding, no pain, no CVA tenderness, Extremities: Normal inspection, no peripheral edema or erythema, calfs nontender to palpation Psych: Normal mood and affect Skin: Laceration to left forehead with wrap, left elbow small laceration, bruising to right hand, bruising to left upper arm, bruising to left lower leg. Results & Data Results & Data ([facility]) Vital Signs (Past 12 Hours) Vital Signs Temp Pulse Pulse Resp BP BP Pulse Ox 03/14/21 17:23 36.7 C 112 H 20 130/92 98 03/14/21 17:15 118 H 25 H 130/92 03/14/21 17:08 117 H 20 110/87 98 03/14/21 17:00 117 H 23 110/87 97 03/14/21 16:57 117 H 24 97/82 L 97 03/14/21 16:53 36.5 C 117 H 20 96/77 L 98 03/14/21 16:50 117 H 25 H 96/77 L 97 03/14/21 16:45 114 H 23 110/94 98 03/14/21 16:40 115 H 19 138/90 97 03/14/21 16:38 111 H 20 138/90 97 03/14/21 16:35 109 H 22 141/87 H 03/14/21 16:30 114 H 22 151/101 H 03/14/21 16:25 106 H 23 163/116 H 93 03/14/21 16:24 36.6 C 108 H 20 146/110 H 94 03/14/21 16:20 101 H 17 131/88 92 03/14/21 16:15 107 H 23 132/76 90 03/14/21 16:10 119 H 25 H 113/77 91 03/14/21 16:08 125 H 20 113/77 94 03/14/21 16:05 113 H 18 140/99 91 03/14/21 16:00 115 H 15 139/90 03/14/21 15:55 115 H 22 149/108 H 92 03/14/21 15:53 16 93 03/14/21 15:50 112 H 28 H 145/99 H 92 03/14/21 15:45 112 H 26 H 145/94 H 93 03/14/21 15:40 112 H 25 H 154/88 H 91 03/14/21 15:34 111 H 22 161/107 H 90 03/14/21 14:53 110 H 20 124/77 94 Laboratory Results Abnormal lab results 03/14/21 03/14/21 03/14/21 Range/Units 15:29 15:29 15:34 WBC 11.39 H (4.8-10.8) K/uL Hgb 18.8 H (12.0-16.0) g/dL POC Hgb 19.7 H (12.0-16.0) g/dl Hct 51.0 H (37-47) % POC Hct 58 H (37-47) % MCH 36.2 H (25-34) pg MCHC 36.9 H (32-36) g/dL Neut # (Auto) 9.90 H (1.4-6.5) K/uL Lymph # (Auto) 0.56 L (1.2-3.4) K/uL [place] # (Auto) 0.84 H (0.11-0.59) K/uL Immature Gran # (Auto) 0.06 H (0.00-0.02) K/uL POC Sodium 119 L* (135-144) mmol/L Sodium 118 L* (136-145) mmol/L POC Potassium 5.4 H (3.3-5.0) mmol/L POC Chloride 84 L (101-112) mmol/L Chloride 84 L (98-107) mmol/L POC Anion Gap 13.0 L (16-25) mmol/L POC Creatinine 0.5 L (0.6-1.3) mg/dl Glucose 118 H (70-99) mg/dl POC Glucose (other) 119 H (70-99) mg/dl POC Ioniz Calcium Ignacio 0.98 L (1.12-1.32) mmol/l Total Bilirubin 2.3 H (0.2-1) mg/dl AST 49 H (15-37) U/L Alkaline Phosphatase 245 H (45-117) U/L Albumin 3.2 L (3.4-5.0) gm/dl Globulin 4.7 H (2.5-4.0) gm/dl Albumin/Globulin Ratio 0.7 L (0.9-2) Diagnostic Findings Chest X-Ray 03/14/21 14:34 XR chest 1V portable CLINICAL HISTORY: Stroke Like Symptoms COMPARISON STUDY: 09/01/2020 FINDINGS: The heart is mildly enlarged. There is radiographic evidence of congestive failure/fluid overload with bilateral pleural effusions left greater than right. There are bibasilar opacities, likely representing compressive atelectasis although an infectious/inflammatory process could appear similar. Clinical and radiographic follow-up is recommended. The patient is rotated. There is a nonspecific 1 cm right upper lung zone opacity. There is a 5 mm left upper lung zone nodular opacity.[ IMPRESSION: 1. Radiographic evidence of congestive failure/fluid overload with bilateral pleural effusions left greater than right 2. Bibasilar opacities likely atelectatic although an infectious/inflammatory process could appear similar 3. Nonspecific small upper lung zone nodular opacities. 4. Radiographic follow-up is recommended. ACT 112: Negative or not required by law. Electronically signed by: Callum Nelson M.D. 03/14/2021 3:[address] 03/14/21 14:34 CT head/brain wo con CLINICAL HISTORY: Stroke Like Symptoms COMPARISON STUDY: 09/01/2020 TECHNIQUE: Axial CT of the brain is performed from the vertex to the skull base. IV contrast was not administered for this examination. A dose lowering technique was utilized adhering to the principles of ALARA. CT DOSE: 975.90 mGy.cm FINDINGS: There is a stable left frontal arachnoid cyst measuring 4.5 cm in diameter. There is no CT evidence of acute cortical infarction. There is no evidence of acute hemorrhage. There is no evidence of midline shift. No calvarial fractures are visualized. There are extensive white matter hypodensities likely on a small vessel basis. There is no evidence of pathologic ventricular dilatation. There is no evidence of acute sinusitis The roller printer localizer image demonstrates a 1 cm right upper lung zone pulmonary nodule. IMPRESSION: 1. No acute intracranial findings 2. Stable left frontal arachnoid cyst 3. Persistent severe white matter disease. ACT 112: Negative or not required by law. Electronically signed by: Callum Nelson M.D. 03/14/2021 2:55 PM Head CTA 03/14/21 14:34 HEAD & NECK CTA HISTORY: Stroke Like Symptoms TECHNIQUE: Multiaxial CT images of the head were performed following the intravenous administration of contrast to evaluate the major cerebral vessels. Multiaxial CT images of the neck were also performed following the intravenous administration of contrast to evaluate the major cervical vessels. Maximum intensity projection images were also obtained. A dose lowering technique was utilized adhering to the principles of ALARA. COMPARISON: Head CT 03/14/2021. FINDINGS: There is no mass, hematoma, midline shift, or acute infarct. Visualized intracranial internal carotid arteries, distal vertebral arteries, and basilar artery are widely patent. There is no significant stenosis, occlusion, or aneurysm seen within the bilateral ACAs or MCAs. Mild to moderate multifocal narrowing within the bilateral mid delivery of shopping news without occlusion. Stable 4.5 cm left frontal lobe arachnoid cyst. Mild soft tissue swelling and subcutaneous gas within the left lateral scalp. This represents a scalp laceration. The aortic arch and proximal great vessels are widely patent. There is no significant stenosis, occlusion, or dissection identified within the bilateral common carotid, internal carotid, or vertebral arteries. Mild interlobular septal thickening and patchy irregular densities within the lung apices. There are moderate bilateral pleural effusions. This could be due to an atypical pneumonia or pulmonary edema. Mild to moderate calcified plaque within the bilateral carotid bifurcations. IMPRESSION: 1. Mild to moderate multifocal narrowing within the bilateral mid delivery of shopping news. Othe rwise, no significant stenosis, occlusion, or aneurysm within the remaining [place]. 2. No significant stenosis, occlusion, or dissection identified within the carotid or vertebral arteries. 3. Left scalp swelling/laceration. 4. Mild interlobular septal thickening and patchy irregular densities within the lung apices. There are are also moderate bilateral pleural effusions. This could be due to pulmonary edema or an atypical pneumonia. ACT 112: Negative or not required by law. Electronically signed by: Dustin Sotelo M.D. 03/14/2021 3:10 PM Neck CTA 03/14/21 14:34 HEAD & NECK CTA HISTORY: Stroke Like Symptoms TECHNIQUE: Multiaxial CT images of the head were performed following the intravenous administration of contrast to evaluate the major cerebral vessels. Multiaxial CT images of the neck were also performed following the intravenous administration of contrast to evaluate the major cervical vessels. Maximum intensity projection images were also obtained. A dose lowering technique was utilized adhering to the principles of ALARA. COMPARISON: Head CT 03/14/2021. FINDINGS: There is no mass, hematoma, midline shift, or acute infarct. Visualized intracranial internal carotid arteries, distal vertebral arteries, and basilar artery are widely patent. There is no significant stenosis, occlusion, or aneurysm seen within the bilateral ACAs or MCAs. Mild to moderate multifocal narrowing within the bilateral mid delivery of shopping news without occlusion. Stable 4.5 cm left frontal lobe arachnoid cyst. Mild soft tissue swelling and subcutaneous gas within the left lateral scalp. This represents a scalp laceration. The aortic arch and proximal great vessels are widely patent. There is no significant stenosis, occlusion, or dissection identified within the bilateral common carotid, internal carotid, or vertebral arteries. Mild interlobular septal thickening and patchy irregular densities within the lung apices. There are moderate bilateral pleural effusions. This could be due to an atypical pneumonia or pulmonary edema. Mild to moderate calcified plaque within the bilateral carotid bifurcations. IMPRESSION: 1. Mild to moderate multifocal narrowing within the bilateral mid delivery of shopping news. Otherwise, no significant stenosis, occlusion, or aneurysm within the remaining [place]. 2. No significant stenosis, occlusion, or dissection identified within the carotid or vertebral arteries. 3. Left scalp swelling/laceration. 4. Mild interlobular septal thickening and patchy irregular densities within the lung apices. There are are also moderate bilateral pleural effusions. This could be due to pulmonary edema or an atypical pneumonia. ACT 112: Negative or not required by law. Electronically signed by: Dustin Sotelo M.D. 03/14/2021 3:10 PM Medications Administered Lorazepam (Ativan) 1 mg in 2 mls @ 2 mls/min IV ONE PRN; Protocol PRN Reason: EtoH Withdrawal AWSS 6-10 Stop: 04/13/21 16:09 Last Admin: 03/14/21 17:08 Dose: 2 mls/min Documented by: [id number] Discontinued Medications Alteplase, Recombinant (Tpa For Stroke) 1 ea IV NOW STA; Protocol Stop: 03/14/21 15:19 Last Admin: 03/14/21 16:47 Dose: Not Given Documented by: [id number] Alteplase, Recombinant 5.4 mg/ (Syringe) 5.4 mls @ 5.4 mls/min IV ONCE ONE Stop: 03/14/21 15:29 Last Admin: 03/14/21 15:38 Dose: 5.4 mls/min Documented by: [id number] Cosigned by: [id number] Alteplase, Recombinant 49 mg/ (EMPTY BAG) 49 mls @ 49 mls/hr IV ONCE ONE Stop: 03/14/21 15:30 Last Infusion: 03/14/21 16:42 Dose: 0 mls/hr Documented by: [id number] Cosigned by: [id number] Admin: 03/14/21 15:43 Dose: 49 mls/hr Documented by: [id number] Cosigned by: [id number] Sodium Chloride (Nss) 500 mls @ 999 mls/hr IV .Q31M ONE Stop: 03/14/21 16:08 Last Infusion: 03/14/21 16:48 Dose: 0 mls/hr Documented by: [id number] Admin: 03/14/21 16:00 Dose: 999 mls/hr Documented by: [id number] Thiamine HCl 100 mg/ Syringe 10 mls @ 2 mls/min IV NOW STA Stop: 03/14/21 16:12 Last Admin: 03/14/21 16:50 Dose: 2 mls/min Documented by: [id number] Ioversol (Optiray 320 125ml) 118 ml IV ONCE ONE Stop: 03/14/21 14:45 Last Admin: 03/14/21 14:45 Dose: 118 ml Documented by: [id number] ECG Additional Comments: Sinus tachycardia Septal infarct , age undetermined Abnormal ECG When compared with ECG of 01-SEP-2020 15:48, Premature supraventricular complexes are no longer Present Septal infarct is now Present Code Status & VTE Plan Code Status CODE: DNR/DNI VTE: SCD's for first 24 hours following tPA administration VTE Prophylaxis Plan VTE Prophylaxis will be ordered: Yes Supervising Physician Co-Signing Physician Notes Patient seen and examined at bedside. Obtained history and physical examination during face to face encounter with patient. I reviewed above note and agree with it. Discussed plan with JUAN A Mata. I answered all of the patients questions. Patient received tPA for CVA will need to admit to ICU for close monitoring for 24 hours. will consult steam finisher. PG Care Time/CCT Total # of Minutes Spent Total Time Spent with Patient: Total time spent is greater than 50% in coordination of care (as documented) at patient's floor/unit and/or counseling patient: Coding Level of Care Code 27717 Initial Inpt Care Lvl 3 Diagnoses CVA (cerebral vascular accident) I63.9 CVA mechanism: unspecified Acute left-sided weakness R53.1 Acute hyponatremia E87.1 Laceration of scalp S01.01XA Encounter type: initial encounter Alcohol abuse F10.10 Hypotension I95.9 Hypotension type: unspecified hypotension type Hypocalcemia E83.51 Hyperkalemia E87.5 (1) Hypotension Hypotension type: unspecified hypotension type Qualified Code(s): I95.9 - Hypotension, unspecified (2) CVA (cerebral vascular accident) CVA mechanism: unspecified Qualified Code(s): I63.9 - Cerebral infarction, unspecified (3) Laceration of scalp Encounter type: initial encounter Qualified Code(s): S01.01XA - Laceration without foreign body of scalp, initial encounter
--- NOTE | 2021-03-14 18:21 | Critical Care Consultation ---
Date of Consultation March 14, 2021 Assessment & Plan (1) Hyperkalemia: Reason Critically Ill: Yanna is an 85-year-old female with a notable history of alcohol use who presented to [facility] following a mechanical fall in which she was discovered to have left-sided weakness (last known normal approximately 1335) and was subsequently transported as a stroke alert; in the ED, she was deemed a candidate for TPA (is not on blood thinners) after consulting with [facility] was given this at approximately 1538. She now requires ICU level care for hemodynamic and neurologic monitoring status post TPA. Neuro - CAM ICU: NEGATIVE Sedation: none Analgesia: none Suspected Ischemic Stroke -- with appreciable left-sided deficits on exam * LNN approx. 1335 -- thereafter presented with left-sided deficits in both arm and leg that prompted a fall per history * s/p tPA at 1538 --> if any c/f neurologic demise, proceed with H&H, stat nCT-H * Continue neurologic checks * Maintain BP < 185/110 -- labetalol, nicardipine p.r.n. * Neurology already consulted * F/U echocardiogram, repeat MRI, labs * Supplemental O2 for SpO2 < 94% Frequent Alcohol Abuse / Risk for Withdrawal * Patient and niece reporting patient consumes 5-8 x 12oz beers daily -- last drink she believes was earlier today, maybe around 1300 * Agree with AWSS -- Ativan p.r.n. as criteria is met * Trend LFTs (mild transaminitis), liver function, sodium * Continue thiamine, folate Cardiac - Hypotension (with Tachycardia) * BPs upon arrival in the ED have ranged between 90/60s - 130s/90s in setting of hyponatremia/chloremia * Suspect likely secondary to poor PO intake / hypovolemia. -- H&H demonstrating concentration. -- No white count, recent infectious symptoms * Continue mIVF Respiratory - * No acute needs at present * Supplemental oxygen for SpO2 < 94% GI - * NPO pending swallow evaluation * FACILITY TECHNICIAN consult RENAL/LYTES - Hyponatremia (121) * Suspect that this is likely chronic, likely due to poor diet in setting of chronic alcohol use and hypovolemia. Not on any meds. No h/o previous head injury. * Asymptomatic at present * Continue careful and slow volume resuscitation for now with LR - BMPs q4h * Agree with volume restriction -- 1L/day * Can consider further work-up pending AM labs Hyperkalemia (5.4) * Noted. Continue LR, monitor in AM - * No concerns at this time ENDO - * ICU hyperglycemia protocol HEME - * H&H demonstrating hemoconcentration * Stat H&H for any neurologic decline * Continue mIVF * H&H in AM ID - * No infection concerns at this time * Monitor temperatures INTEGUMENTARY - * Scalp laceration noted, repaired in ED LINES/IV ACCESS - PIVs intact. DVT PROPHYLAXIS - * Hold at this time 2/2 tPA Thank you for allowing us to be part of this patient's care. Please refer to []'s documentation for any further recommendations. (2) Hypocalcemia: (3) Hypotension: (4) Alcohol abuse: (5) CVA (cerebral vascular accident): (6) Acute left-sided weakness: (7) Acute hyponatremia: (8) Laceration of scalp: (9) Pseudogout: (10) Effusion, right knee: Supervising Physician Co-Signing Physician Notes Dr. Hebert was resident physician during care of patient. I separately evaluated patient for hernandez portions of the history and the exam. I was present during the critical portion of medical decision making, and I discussed the case with the resident. I generally agree with the findings and plan. History of Present Illness History of Present Illness This is an 85-year-old female with a notable history of frequent alcohol use who presented to [facility] accompanied by her niece for evaluation of a fall and left-sided weakness. After talking with patient and her niece, as well as reviewing previous notes, patient had 2 separate falls this morningonce around 1230 without deficits, and another fall around 1335 where after EMS was called. Around that time, she was noted to have left-sided deficits. She was taken to [facility] for a stroke alert. Initial exam revealing of left sided weakness in the UE, LE. CTA of the head and neck was unrevealing for any acute processes. She was deemed a candidate for TPA after telemetry consult with [facility]. She was given tPA at 1538. Upon my initial assessment with her in the ER, Yanna was found to be relaxed and fully alert/oriented. Her niece was at the bedside. Hemodynamically stable with note of a pulse around 112. She continues to demonstrate mild amnesia of the events, as well as left upper and left lower extremity weakness. No appreciable dysarthria. Of note, I did have a conversation with the patient and her niece about alcohol use. Per niece's report, patient drinks about 7 to 8 cans of 12 ounce beer daily; she has never suddenly discontinued drinking before. Has no history of alcohol withdrawal in the past. Allergies Allergy/AdvReac Type Severity Reaction Status Date / Time capsaicin Allergy Intermediate RASH Verified 03/14/21 15:02 diclofenac Allergy Intermediate RASH Verified 03/14/21 15:02 Home Medications Medication Instructions Recorded Confirmed Type No Known Home Medications 03/14/21 03/14/21 History Patient History Medical History Anemia Arthritis of knee, left GI bleed Knee pain, right Pseudogout Family History (Updated 03/14/21 @ 17:57 by HAWA Salomon) Other Family history non-contributory Social History Smoking Status: Unknown if ever smoked Hx Alcohol Use: Yes Alcohol type: beer Hx Substance Use: No Preferred Language: Yoruba Beliefs That Will Affect Care: None Current Living Situation: Spouse Feels Safe at Home: Yes Review of Systems Review of Systems: As per HPI Physical Exam Physical Exam: General: 85-year-old female who is lying back in her hospital bed, relaxed, upon my arrival. Niece is at the bedside. She speaks in full sentences, without appreciable dysarthria or aphasia. No acute distress. HEENT: Head bandage in place - c/d/i. Eyes - Sclera are white, anicteric, and without injection. PERRL. EOMs display full ROM bilaterally. Mouth - MMM with no tonsillar edema or exudates. Cardiac: Mildly tachycardic and regular rhythm; S1 and S2 present with no murmurs, rubs, or gallops. Pulmonary: Good respiratory effort with symmetric expansion of the chest. No use of accessory muscles. Lungs were clear to auscultation bilaterally with no crackles or wheezes. Abdominal: Normoactive bowel sounds. Abdomen was soft, nondistended, and non- tender to palpation. Extremities: Upper and lower extremities are warm and well perfused. Capillary refill assessed in UE was < 3 sec. Neuro: - No dysarthria or aphasia - Cranial Nerves: CN I, IX, and X - not assessed. II - PERRL. III/IV/ - EOMs WNL. No nystagmus. V - jaw opening WNL. VII - Patient is able to smile symmetrically and keep eyes close against resistance. IX - Able to shrug shoulders against resistance. XI - Soft palate raises equally and appropriately while saying "ah." XII - patient is able to stick out tongue and deviate from [id number] appropriately. No deviation. - Motor: UE - Finger, wrist, elbow, and shoulder strength is 5/5 on the R, 0/5 on the L. LE - Hip, knee, and ankle strength is 5/5 on the R, approx. ~1-2/5 on the L. - Sensation: Patient reporting hypersensation to light touch on L as compared to R - Reflexes - Biceps 2+ R and 3+ left; brachioradialis 2+ R and 3+ left; patellar 2+ R and 3+ left - [id number]: WNL using R hand -- cannot use L d/t motor deficits Psych: Well-developed, well-nourished, appropriately dressed for occasion. Behavior is cooperative and appropriate. Affect is WNL. Insight is appropriate. Results & Data Results & Data ([facility]) Vital Signs (Past 12 Hours) Vital Signs Temp Pulse Pulse Resp BP BP Pulse Ox 03/14/21 18:02 112 H 23 94/65 L 100 03/14/21 17:45 113 H 24 112/90 98 03/14/21 17:38 36.4 C L 105 H 16 97/71 L 98 03/14/21 17:30 102 H 19 98/70 L 98 03/14/21 17:23 36.7 C 112 H 20 130/92 98 03/14/21 17:15 118 H 25 H 130/92 03/14/21 17:08 117 H 20 110/87 98 03/14/21 17:00 117 H 23 110/87 97 03/14/21 16:57 117 H 24 97/82 L 97 03/14/21 16:53 36.5 C 117 H 20 96/77 L 98 03/14/21 16:50 117 H 25 H 96/77 L 97 03/14/21 16:45 114 H 23 110/94 98 03/14/21 16:40 115 H 19 138/90 97 03/14/21 16:38 111 H 20 138/90 97 03/14/21 16:35 109 H 22 141/87 H 03/14/21 16:30 114 H 22 151/101 H 03/14/21 16:25 106 H 23 163/116 H 93 03/14/21 16:24 36.6 C 108 H 20 146/110 H 94 03/14/21 16:20 101 H 17 131/88 92 03/14/21 16:15 107 H 23 132/76 90 03/14/21 16:10 119 H 25 H 113/77 91 03/14/21 16:08 125 H 20 113/77 94 03/14/21 16:05 113 H 18 140/99 91 03/14/21 16:00 115 H 15 139/90 03/14/21 15:55 115 H 22 149/108 H 92 03/14/21 15:53 16 93 03/14/21 15:50 112 H 28 H 145/99 H 92 03/14/21 15:45 112 H 26 H 145/94 H 93 03/14/21 15:40 112 H 25 H 154/88 H 91 03/14/21 15:34 111 H 22 161/107 H 90 03/14/21 14:53 110 H 20 124/77 94 Resident Activity Tracking Resident Involvement: Resident Care Provided Care Provided: Adult Hospital Medicine (1) Hypotension Hypotension type: unspecified hypotension type Qualified Code(s): I95.9 - Hypotension, unspecified (2) CVA (cerebral vascular accident) CVA mechanism: unspecified Qualified Code(s): I63.9 - Cerebral infarction, unspecified (3) Laceration of scalp Encounter type: initial encounter Qualified Code(s): S01.01XA - Laceration without foreign body of scalp, initial encounter
--- NOTE | 2021-03-14 19:50 | Communication Note ---
Date of Service: March 14, 20211929: Patient presented to the ICU from the ED after receiving TPA in the setting of 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 Was made aware of labile blood pressures with most recent reading with SBPs in the 80s. Patient was assessed at bedside by myself. Patient is awake, alert, and oriented. She complains of LEFT-sided weakness. Otherwise, she denies any complaints of headaches, dizziness, lightheadedness, blurred vision, double vision, chest pain, palpitations, shortness of breath, nausea, vomiting, or abdominal pain. On physical exam, the patient was noted to have flaccid paralysis of the LEFT upper and lower extremities. Additionally, on abdominal exam, the patient was noted to have moderate tenderness to palpation in the LEFT lower quadrant. Bowel sounds hypoactive. In further discussion, she reports that pain did not start until after her fall today. Pelvis is stable with pelvic rock. No tenderness palpation over the greater trochanteric processes bilaterally. No pain with palpation in the legs bilaterally. Given the findings of hypotension with associated abdominal pain in the elderly female who is recently sustained a fall and received TPA, I felt it prudent to perform CT scan of the abdomen pelvis for possible traumatic injury and/or area of bleeding. CT scan of the chest was added as well given patient's fall to the LEFT side and possible risk of intrathoracic injury as well. Thankfully, the patient at least at this point does not have tenderness palpation across the chest wall bilaterally. Orders placed for CT scan. 2044: Patient returned from CT scan. Imaging results pending at this time. Patient noted to have blood pressure of 75/57. Patient reassessed at bedside. She continues to offer no complaints other than abdominal pain. Thankfully, the patient's RIGHT AC IV site was able to be accessed and was drawn for stat lab orders. Order placed for 250 mL LR bolus for hypotension. Order placed for intravenous Levophed. I am being cautious to not over resuscitate with IV fluids in this patient given her acute hyponatremia and risk for ODS. This patient is extremely concerning given her recent fall with scalp laceration and LEFT-sided hemiparesis he recently received TPA and is now complaining of abdominal pain and is noted to be hypotensive. Additionally, concerns for mahendra pheral access given need for likely serial lab draws in the setting of hyponatremia. We will continue the post TPA protocol, however I will be providing orders for nursing staff to draw labs from IV sites to monitor serial sodium levels as well as serial H&Hs as needed. 2114: Spoke with radiologist regarding imaging. Concerns for moderate extraperitoneal hemorrhage with likely acute displaced pelvic fracture. Additionally, concerns for bilateral pleural effusions with possible hemothoraces. 0: Discussed case with attending. 2124: Discussed with patient at bedside. We did discuss at great length the nature of her condition. Patient is awake, alert, and oriented and able to make her own medical decisions. Despite this, she request that I speak with her niece, Mary to provide her update as well. Yanna states that she would wish to undergo intervention if it were to help her improve and to be discharged from the hospital. She reiterates that she is DNR/DNI in the event of an emergency. Otherwise, she is comfortable with proceeding with any procedure in an effort to save her life. 2128: Called Mary ([phone]). Provided update of change in condition. We did discuss her status at great length. We explained the nature of extraperitoneal hemorrhage and concerns given recent TPA administration. She is in agreement that they would not wish to proceed with any great heroic efforts in the event of arrest, however she is comfortable with intervention if immediately necessary to help stave off bleeding and risk for from RP bleed. They were comfortable with transfer to [facility] if needed. She recommends that I speak with patient at bedside again. 5: Discussion with patient at bedside. Did discuss need for transfer as well as need for transfer via [facility]. Patient expresses understanding and is in agreement. 215: Spoke with Drs. Carpenter and Karin regarding patient and possible need for transfer. Dr. Frazier [place] in [place] [facility] [place] be [place] to their S[place] for further trauma evaluation and management. 224: Spoke Mary, provided update and [place] [facility] [place] I have personally spent 120 minutes of critical care time in the direct management of this patient. This is a life/limb threatening event. This includes time spent evaluating patient, direct bedside care, chart review, placing orders, interpretation of diagnostic studies, discussion with consultants, patient, and family members, as well as other required patient management activities. This time is exclusive of all separately billable procedures, and teaching time and separate from and in addition to any other critical care service time. Coding Level of Care Code Critical Care ea addt'l 30 min
[2021-03-14] MEDS ORDERED: LACTATED RINGER'S 1,000 ML IV SCH (20:40)
[2021-03-14] MEDS ORDERED: FOLIC ACID 1 MG TAB PO SCH (20:40)
[2021-03-14] MEDS ORDERED: LACTATED RINGER'S 250 ML IV ONE (20:43)
[2021-03-14] MEDS ORDERED: STAT IV Infusion **Titration per Protocol STA (20:53)
[2021-03-14] MEDS ORDERED: THIAMINE HCL 500 MG in SYRINGE 9 ML IV SCH (21:00)
[2021-03-14] MEDS ORDERED: NOREPINEPHRINE/D5W 8 MG/508 ML BAG IV SCH (21:00)
--- NOTE | 2021-03-14 21:24 | CT Scan Report ---
CT OF THE CHEST WITHOUT IV CONTRAST CLINICAL HISTORY: pain s/p fall, recent TPA administration COMPARISON STUDY: Chest radiograph performed earlier today. CT DOSE: 680.04 mGy.cm TECHNIQUE: Axial images of the chest were obtained without IV contrast. Images were reviewed in the axial, sagittal, and coronal planes. IV contrast was not administered for this examination. Automat ed exposure control was utilized for the study. A dose lowering technique was utilized adhering to t he principles of ALARA. FINDINGS: Thoracic aorta is suboptimally assessed on this unenhanced exam but there is no mediastina l hematoma. Size the heart is normal. There is no pericardial effusion. Note is made of moderate bila teral pleural effusions, right larger left. These measure above water attenuation. There is no pneumo thorax. Lungs are suboptimally assessed due to respiratory motion. Interlobular septal thickening is noted. In addition, there are numerous irregular airspace opacities throughout the lungs. There is an acute to subacute mildly displaced fracture of the posterior left eighth rib. Moderate compression d eformity of the superior plate of T12 is probably old. Abdomen and pelvis will be reported separately . There is no thoracic lymphadenopathy. IMPRESSION: 1. Moderate bilateral pleural effusions. These measure above water attenuation and therefore hemothor aces would be difficult to exclude. No pneumothorax. Acute to subacute mildly displaced fracture of t he posterior left eighth rib. Findings discussed with Jh Ozuna at time of dictation. 2. Interlobular septal thickening consistent with pulmonary edema. Additional numerous irregular airs pace opacities within the lungs could reflect a superimposed infectious process or alveolar edema. 3. Suspected hemoperitoneum, better depicted on the CT of the abdomen and pelvis. Please see that rep ort for further description. ACT 112: Negative or not required by law. Electronically signed by: Oni Rodriguez M.D. 03/14/2021 9:23 PM
--- NOTE | 2021-03-14 21:34 | CT Scan Report ---
CT OF THE ABDOMEN AND PELVIS WITHOUT CONTRAST CLINICAL HISTORY: Abdominal pain status post fall. COMPARISON STUDY: Abdominal ultrasound June 10, 2014. TECHNIQUE: Axial images of the abdomen and pelvis were obtained without IV contrast. Images were revi ewed in the axial, sagittal, and coronal planes. Automated exposure control was utilized for the dann dy. A dose lowering technique was utilized adhering to the principles of ALARA. FINDINGS: Moderate bilateral pleural effusions are better depicted on the chest CT. Interlobular sept al thickening and superimposed irregular airspace opacities within the lungs are also better depicted on the chest CT. Evaluation of the abdomen and pelvis is suboptimal on this unenhanced examination. The liver is heterogeneous. The liver is likely cirrhotic. Underlying hepatic lesions would be diffic ult to exclude on this examination, particularly within the right hepatic lobe. Underlying hepatic la cerations cannot be completely excluded. Moderate intermediate attenuation peritoneal fluid is noted. This favors hemoperitoneum. There is also a moderate amount of extraperitoneal hemorrhage within the pelvis, possibly related to an acute mildly displaced fracture of the medial left pubic bone. A Fole y balloon within the bladder is noted. There are bilateral persistent delayed nephrograms. Colonic di verticulosis is noted. There is no evidence for a bowel obstruction. T12 compression deformity is pro bably chronic. No acute proximal femoral fracture is present. Small amount of hyperdense material wit hin the gallbladder is noted. IMPRESSION: 1. Moderate extraperitoneal hemorrhage within the pelvis, likely related to an acute mildly displaced fracture of the medial left pubic bone. 2. Moderate amount of peritoneal fluid which measures above water attenuation. Although this could be due to vicarious excretion of contrast, hemoperitoneum is the diagnosis of exclusion and is favored. Findings discussed with Jh Ozuna at the time of dictation. 3. Suspected cirrhosis. Heterogeneity of the liver. Underlying hepatic lesions cannot be excluded. Al though less likely, hepatic laceration is also within the differential. Suboptimal evaluation on this unenhanced exam. A contrast-enhanced CT of the abdomen and pelvis could be obtained for further eval uation. 4. Persistent delayed bilateral nephrograms. This could be due to hypotension. ACT 112: Negative or not required by law. Electronically signed by: Oni Rodriguez M.D. 03/14/2021 9:33 PM
[2021-03-14 21:41] LABS: Magnesium 2.1 mg/dl (1.8-2.4); Potassium 4.3 mmol/L (3.5-5.1)
[2021-03-14 21:42] LABS: BUN Creatinine Ratio 23.1 (10-20); Calcium 7.9 mg/dl (8.5-10.1); Creatinine Clr Calc Pharmacy 57.1 ml/min; Est GFR (African American) 94.2 ml/min; Est GFR (Non-African American) 81.3 ml/min; Phosphorus 3.6 mg/dl (2.5-4.9)
[2021-03-14 21:48] LABS: Hematocrit (blood only) 36.8 % (37-47); Hemoglobin 13.3 g/dL (12.0-16.0)
[2021-03-14] MEDS ORDERED: THIAMINE HCL 500 MG in 0.9 % SODIUM CHLORIDE 100 ML IV SCH (22:00)
[2021-03-14] MEDS ORDERED: SODIUM CHLORIDE 0.9% 250 ML IV PRN (22:16)
[2021-03-14 22:44] LABS: Hematocrit (blood only) 35.7 % (37-47); Hemoglobin 12.7 g/dL (12.0-16.0)
--- NOTE | 2021-03-14 23:25 | Communication Note ---
Date of Service: March 14, 2021 It should be noted that a repeat H&H was obtained which demonstrated a continued drop. Given the patient's trauma and substantial amount of bleeding in the retroperitoneal space as well as concerns for possible bleeding into the chest cavity, orders were placed for transfusion of 1 unit PRBC. This had previously been discussed with trauma surgeon while on the phone with [facility]. He suggest continuing with IV fluids as the patient will likely undergo angiogram upon arrival at their institution. Additionally, he agrees with transfusion of at least 1 unit as long as she remains hemodynamically stable. If she were to decompensate, he recommends transfusion of cryoprecipitate and platelets. To this point, the patient remains hemodynamically stable. We will continue with LR and orders were placed to transfuse 1 U PRBC. Coding Level of Care Code None
--- NOTE | 2021-03-15 10:19 | Neurology Consultation ---
Date of Consultation March 15, 2021 History of Present Illness Reason for Consultation: Patient was transferred to [facility] before I could see her neurological consultation. Attending Physician: Syd Bhatia Allergies Allergy/AdvReac Type Severity Reaction Status Date / Time capsaicin Allergy Intermediate RASH Verified 03/14/21 15:02 diclofenac Allergy Intermediate RASH Verified 03/14/21 15:02 Home Medications Medication Instructions Recorded Confirmed Type No Known Home Medications 03/14/21 03/14/21 History Patient History Medical History Anemia Arthritis of knee, left GI bleed Knee pain, right Pseudogout Family History (Updated 03/14/21 @ 17:57 by HAWA Salomon) Other Family history non-contributory Social History Smoking Status: Unknown if ever smoked Hx Alcohol Use: Yes Alcohol type: beer Hx Substance Use: No Preferred Language: Persian Beliefs That Will Affect Care: None Current Living Situation: Spouse Feels Safe at Home: Yes Results & Data ([facility]) Vital Signs (Past 12 Hours) Vital Signs Temp Pulse Pulse Resp BP BP Pulse Ox 03/15/21 00:33 36.8 C 112 H 22 90/56 L 96 03/14/21 23:28 36.8 C 112 H 22 90/56 L 96 03/14/21 23:15 111 H 03/14/21 23:08 36.8 C 112 H 112 H 22 90/56 L 90/56 L 96 03/14/21 22:38 36.6 C 110 H 22 108/78 96 PG Care Time/CCT Total # of Minutes Spent Total Time Spent with Patient: Total time spent is greater than 50% in coordination of care (as documented) at patient's floor/unit and/or counseling patient: Coding Level of Care Code None
--- NOTE | 2021-03-15 18:22 | Electrocardiogram Report ---
Test Reason : Blood Pressure : / mmHG Vent. Rate : 110 BPM Atrial Rate : 110 BPM P-R Int : 170 ms QRS Dur : 060 ms QT Int : 318 ms P-R-T Axes : 049 036 065 degrees QTc Int : 430 ms Sinus tachycardia Abnormal ECG When compared with ECG of 01-SEP-2020 15:48, Premature supraventricular complexes are no longer Present Confirmed by Lucho Overton ([id number]) on 03/15/2021 6:22:03 PM Referred By: REFERRED SELF Confirmed By:Antonino Overton
--- NOTE | 2021-03-16 09:04 | Discharge Summary ---
Date of Service March 14, 2021 Admission HPI Per Admitting Provider 85 YOF that does not routinely follow up with medical care and reportedly is not on any home medications other than Tylenol and Motrin for back pain. Patient comes in to the hospital today after falling in front of her steps this morning. The patient does exhibit some amnesia from the events from this morning. Her niece accompanies her to the bedside and she reports that she was called by the pipefitter welder this morning because her aunt fell x2 from standing position. She reportedly fell around 1230 without deficits and had another fall around 1335 for which EMS was called. She was also noted to not be able to move her left side. She was brought to the [facility] in which she was stroke alerted with telemedicine at [facility]. Head CTA was done at 1450. She was deemed a candidate for tPA with her deficits and time last known well she was administered tPA in the EMD and the hospitalist team was notified for admission. Patient received tPA at 1538. Patient also had repair done to a left scalp laceration. Upon my evaluation patient is awake and alert in bed with remaining left sided residual weakness with NIHSS-6. Pain to left hip and pelvis. Pelvis and hip films will be ordered. Patient will be admitted to the ICU post tPA. Type and cross has been performed. Patient states she drinks 5-7 beers per night, she is also noted to be hyponatremic at 119, no baseline INR on this admission, LFTs mild elevation in ALT and Tbili. Patient has not been vaccinated for COVID 19 and her test today is NEGATIVE. Principal Diagnosis CVA Discharge Exam remains amnestic of events leading up to hospitalization. Head: Normocephalic, atraumatic ENT: PERRL, EOMI, no pharyngeal exudate, mucous membranes moist Neuro: AAO x 3, speech clear and appropriate, strength intact bilaterally 5/5 right upper and lower, left upper 0/5, left lower 1/5, sensation intact and equal all extremities and dermatomes, no dysarthria or aphasia, no overshoot with right arm. no visual field deficits appreciated Chest: equal rise and fall of the chest, no accessory muscle use, no heaves or thrills, Clear to auscultation, on room air, Cardiac: Regular rate and rhythm, telemetry reviewed, skin warm dry, cap refill <3 seconds, peripheral pulses +2 no JVD, no murmur, no edema GI: NABS x 4 quadrants, soft, nontender to palpation, no rebound, guarding or tenderness : Spontaneously voiding, no pain, no CVA tenderness, Extremities: Normal inspection, no peripheral edema or erythema, calfs nontender to palpation Skin: Laceration to left forehead with wrap, left elbow small laceration, bruising to right hand, bruising to left upper arm, bruising to left lower leg. Discharge Data Allergies Allergy/AdvReac Type Severity Reaction Status Date / Time capsaicin Allergy Intermediate RASH Verified 03/14/21 15:02 diclofenac Allergy Intermediate RASH Verified 03/14/21 15:02 Consultations 03/14/21 15:55 ED Decision to Admit Stat 03/14/21 17:29 Consult Domestic Freight Forwarder Routine 03/14/21 17:31 Consult Neurology Routine 03/14/21 21:55 Burn CD for patient Routine Ordered Studies 03/14/21 14:34 CT angio head w con Stat CT angio neck with con Stat CT head/brain wo con Stat 03/14/21 19:43 CT abd pelvis wo con Stat 03/14/21 19:49 CT chest diagnostic wo con Stat Hospital Course (1) CVA (cerebral vascular accident): Acute left sided weakness upper and lower extremity- unspecified vessel - tPA ~1538 - Type and cross completed - Monitor q1 hour neurological exams - Lipid panel in the morning - HGBa1c in the morning - Repeat imaging 24 hours post tPA- CT scan if MRI can't be done early in morning - MRI for follow up - non-con CT scan for any neurological changes - PRN hypertensives- likely not needed in the setting of hyponatremia - Neurology consulted - ECHO Appreciate input from Jh Ozuna: Date of Service: March 14, 2021 1930: Patient presented to the ICU from the ED after receiving TPA in the setting of 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 Was made aware of labile blood pressures with most recent reading with SBPs in the 80s. Patient was assessed at bedside by myself. Patient is awake, alert, and oriented. She complains of LEFT-sided weakness. Otherwise, she denies any complaints of headaches, dizziness, lightheadedness, blurred vision, double vision, chest pain, palpitations, shortness of breath, nausea, vomiting, or abdominal pain. On physical exam, the patient was noted to have flaccid paralysis of the LEFT upper and lower extremities. Additionally, on abdominal exam, the patient was noted to have moderate tenderness to palpation in the LEFT lower quadrant. [place] el sounds hypoactive. In further discussion, she reports that pain did not start until after her fall today. Pelvis is stable with pelvic rock. No tenderness palpation over the greater trochanteric processes bilaterally. No pain with palpation in the legs bilaterally. Given the findings of hypotension with associated abdominal pain in the elderly female who is recently sustained a fall and received TPA, I felt it prudent to perform CT scan of the abdomen pelvis for possible traumatic injury and/or area of bleeding. CT scan of the chest was added as well given patient's fall to the LEFT side and possible risk of intrathoracic injury as well. Thankfully, the patient at least at this point does not have tenderness palpation across the chest wall bilaterally. Orders placed for CT scan. 2044: Patient returned from CT scan. Imaging results pending at this time. Patient noted to have blood pressure of 75/57. Patient reassessed at bedside. She continues to offer no complaints other than abdominal pain. Thankfully, the patient's RIGHT AC IV site was able to be accessed and was drawn for stat lab orders. Order placed for 250 mL LR bolus for hypotension. Order placed for intravenous Levophed. I am being cautious to not over resuscitate with IV fluids in this patient given her acute hyponatremia and risk for ODS. This patient is extremely concerning given her recent fall with scalp laceration and LEFT-sided hemiparesis he recently received TPA and is now complaining of abdominal pain and is noted to be hypotensive. Additionally, concerns for peripheral access given need for likely serial lab draws in the setting of hyponatremia. We will continue the post TPA protocol, however I will be providing orders for nursing staff to draw labs from IV sites to monitor serial sodium levels as well as serial H&Hs as needed. 2114: Spoke with radiologist regarding imaging. Concerns for moderate extraperitoneal hemorrhage with likely acute displaced pelvic fracture. Ad ditionally, concerns for bilateral pleural effusions with possible hemothoraces. 2119: Discussed case with attending. 2124: Discussed with patient at bedside. We did discuss at great length the natu re of her condition. Patient is awake, alert, and oriented and able to make her own medical decisions. Despite this, she request that I speak with her niece, Mary to provide her update as well. Yanna states that she would wish to undergo intervention if it were to help her improve and to be discharged from the hospital. She reiterates that she is DNR/DNI in the event of an emergency. Otherwise, she is comfortable with proceeding with any procedure in an effort to save her life. 2128: Called Mary ([phone]). Provided update of change in condition. We did discuss her status at great length. We explained the nature of extraperitoneal hemorrhage and concerns given recent TPA administration. She is in agreement that they would not wish to proceed with any great heroic efforts in the event of arrest, however she is comfortable with intervention if immediately necessary to help stave off bleeding and risk for from RP bleed. They were comfortable with transfer to [facility] if needed. She recommends that I speak with patient at bedside again. 2144: Discussion with patient at bedside. Did discuss need for transfer as well as need for transfer via [facility]. Patient expresses understanding and is in agreement. 2150: Spoke with Drs. Carpenter and Karin regarding patient and possible need for transfer. Dr. Frzaier accepts patient in transfer to [facility]. She will be sent to their SICU for further trauma evaluation and management. 2248: Spoke Mary, provided update and room number at [facility]. Patient was discharged overnight (2) Acute left-sided weakness: As above - will need follow on medical management - PT/OT consult - Case management consult (3) Acute hyponatremia: Patient received 0.9% saline in the EMD- will hold on sending urine labs - hypovolemia confounded with beer drinker potomania likely - Free water restrict 1000 ml for 24 hours - LR resuscitation - asymptomatic at this time - NA levels q4 hours- Notify if NA increases more than 8mmol (4) Laceration of scalp: Repaired in EMD- follow for bleeding (5) Alcohol abuse: 5-7 beers per day - AAWS with Ativan coverage overtop - Follow closely in the setting of tPA for neurological changes - Mild elevation of LFT - INR in the morning - Thiamine 500 mg TID - Folate 1mg PO daily - abdomen protuberant but without evidence of ascites (6) Hypotension: hypovolemia with hemoconcentration on labs as well as hyponatremia and hypochloridemia - replacment with crystalloid (7) Hypocalcemia: Likely related to poor nutrition and ETOH abuse - ICU electrolyte replacement protocol (8) Hyperkalemia: 5.4 - no acute ECG changes noted - fall, hypovolemia - LR will assist with lowering - BMP q4 hours Total Time Total Time Spent Total Time Spent (In Minutes): 60 minutes majority of this was at admission Discharge Plan Discharge Items Patient Disposition: Transfer Acute Care Hospital Reason For Visit: CVA Follow-up/Referrals: Maria Teresa Noe MD [Primary Care Provider] - Stand-Alone Forms: [facility] Skilled Items Lines: Peripheral IV Urinary Catheter: Yes Medications and DC Order Prescriptions: No Action No Known Home Medications RF: 0 Admission Data Admit Date/Time: 03/14/21 17:29 Attending Provider: Syd Bhatia Admit Provider: Syd Bhatia Primary Care Provider: Maria Teresa Noe V. Other Providers: Syd Bhatia ; Juliocesar Waldron ; Juliocesar Alvarado. Other Interventions: Discharge Summary Assessment (RN) Last Done: 03/15/21 00:33 Coding Level of Care Code OBSERV/HOSP SAME DATE LVL 3 Diagnoses CVA (cerebral vascular accident) I63.9 CVA mechanism: unspecified Acute left-sided weakness R53.1 Acute hyponatremia E87.1 Laceration of scalp S01.01XA Encounter type: initial encounter Alcohol abuse F10.10 Hypotension I95.9 Hypotension type: unspecified hypotension type Hypocalcemia E83.51 Hyperkalemia E87.5
== END 2021-03-14 23:45 | disposition short-term general hospital (02) | DRG 62 ==
LOC: ED 14:39 → 1E 17:29